=== PATIENT | female | born 1965 | race Two or more races ===

== ENCOUNTER 2024-12-08 11:01 | Emergency (ER) | payer MEDICAID, OTHER ==
[~2024-12-08] VITALS: Ht 167.6 cm; Wt 86.4 kg
--- NOTE | 2024-12-08 11:54 | DVH ---
EXAM: XY CHEST TWO VIEWS ROUTINE CLINICAL HISTORY: COUGH, SOB 12 DAYS COMPARISON: None TECHNIQUE: Frontal and lateral view of the chest was obtained FINDINGS: Lines and Tubes: None Lungs: No focal consolidation. Mild streaky scarring in the right mid lung. Pleura: No effusion. No pneumothorax. Cardiomediastinal contours: Unremarkable Pulmonary vasculature: Within normal limits. Bones: No acute osseous abnormality. IMPRESSION: 1. No acute cardiopulmonary disease. HS:Y
[2024-12-08 12:11] VITALS: BP 158/95; PULSE 117; TEMP 98.1
[2024-12-08] MEDS: PROMETHAZINE W/CODEINE 5 ML ORAL SYRUP PO ONE (13:21)
[2024-12-08 13:28] VITALS: RESP 18; O2SAT 95
[2024-12-08] MEDS: ALBUTEROL SULF 2.5 MG/0.5ML(0.5%) NEB SOLN NEB ONE (13:28)
[2024-12-08] MEDS: IPRATROPIUM BROM 0.5 MG/2.5ML INH SOL NEB ONE (13:28)
[2024-12-08] MEDS ORDERED: PROM1SOL4 PO (13:39)
[2024-12-08] MEDS ORDERED: ALBU108A5 IN (13:39)
[2024-12-08] MEDS ORDERED: BENZ100C97 PO (13:39)
--- NOTE | 2024-12-08 13:39 | ED.PDOC ---
SOB-HPI HPI Comments 59 year old currently taking cipro on day 4 presents for URI symptoms x 12 days C/o non productive cough. Also taking OTC cough medications Denies CP/SOB Chief Complaint: Flu like Time Seen by MD: 11:38 Primary Care Provider: NONE Reviewed notes: Nurses Notes, Medications, Allergies Information Source: Patient Mode of Arrival: Ambulatory Family History Family History: Reviewed,noncontributory to illness Social History Smoker: Non-Smoker Alcohol: Denies ETOH Use Drugs: Denies Drug Use All Other Systems: Reviewed and Negative (Per HPI) Physical Exam General Appearance: No Apparent Distress, Normal HEENT: Normal ENT Inspection, Pharynx Normal, TMs Normal Neck: Full Range of Motion, Non-Tender, Normal, Normal Inspection Respiratory: Chest Non-Tender, Lungs Clear, No Accessory Muscle Use, No Respiratory Distress, Normal Breath Sounds Cardiovascular: No Edema, No JVD, No Murmur, No Gallop, Normal Peripheral Pulses, Regular Rate/Rhythm Breast Exam: Deferred Gastrointestinal: No Organomegaly, Non Tender, No Pulsatile Mass, Normal Bowel Sounds, Soft Genitalia: Deferred Pelvic: Deferred Rectal: Deferred Extremities: No calf tenderness, Normal capillary refill, Normal inspection, Normal range of motion, Non-tender, No pedal edema Musculoskeletal : Apperance: Normal Neurologic: Alert, export packer II-XII nml as Tested, No Motor Deficits, Normal Affect, Normal Mood, No Sensory Deficits Cerebellar Function: Normal Reflexes: Normal Skin: Dry, Normal Color, Warm Lymphatic: No Adenopathy Was a procedure done? Was a procedure done?: No Differential Dx Differential Diagnosis: Bronchitis X-Ray, Labs, Meds, VS Vital Signs Date Time Temp Pulse Resp B/P (MAP) Pulse Ox O2 Delivery O2 Flow Rate FiO2 12/08/24 13:28 18 95 Room Air* 0 21 12/08/24 12:11 98.1 117 20 158/95 (116) 96 98.1 12/08/24 12:11 117 20 96 Room Air 12/08/24 11:20 98.1 111 20 158/95 (116) 96 PATIENT: GLORY RASHIDIAACCT: [id number]: [id number] : 1965 LOC: ER ROOM / BED: / AGE / SEX: 59 / F ADM STATUS: REG ER SERVICE 1125 ORDERING PHYSICIAN: SHARON IGLESIAS NP PROCEDURE(s): CXR2 - CHEST TWO VIEWS ROUTINE REASON: COUGH, SOB 12 DAYS ORDER NUMBER(s): [id number], ACCESSION NUMBER(s): [id number] EXAM: XY CHEST TWO VIEWS ROUTINE CLINICAL HISTORY: COUGH, SOB 12 DAYS COMPARISON: None TECHNIQUE: Frontal and lateral view of the chest was obtained FINDINGS: Lines and Tubes: None Lungs: No focal consolidation. Mild streaky scarring in the right mid lung. Pleura: No effusion. No pneumothorax. Cardiomediastinal contours: Unremarkable Pulmonary vasculature: Within normal limits. Bones: No acute osseous abnormality. IMPRESSION: 1. No acute cardiopulmonary disease. HS:Y ATED BY: FANTASMA SCHROEDER MD DICTATED DATE/TIME: 12/08/24 115 SIGNED BY: FANTASMA SCHROEDER MD SIGNED DATE/TIME: 12/08/24 115 CC: X-Ray, Labs, Meds, VS Comment History and physical consistent of URI History and exam also consistent with asthma exacerbation. Based on exam, indication for oral steroids and nebulizer at this time Chest XRAY Normal On reevaluation vital signs and exam reassuring. Lungs clear no wheezing. No labored breathing. No signs of respiratory distress. Pt stable for discharge. No concerns for pneumonia at this time. No risk factors. No indication for antibiotics Discussed that cough can linger up to 6 weeks after viral URI ED precautions if cough does not alleviate or if cough worsens Supportive care and return precautions discussed Counseled viral infection and explained that antibiotics would not be helpful in resolving the illness sooner. Recommended vitamin C, rest, handwashing, and symptomatic care. Expect 2-week course with possibly of cough lingering up to 6 weeks. Nonpharmacological remedies for fluids has been recommended as well Time of 1ST Reevaluation: 12:00 Reevaluation 1ST: Improved Time of 2ND Reevaluation: 13:38 Reevaluation 2ND: Improved Patient Education/Counseling: Diagnosis, Treatment Family Education/Counseling: Diagnosis, Treatment Departure 1 Departure Time of Disposition: 13:38 Impression: Primary Impression: Bronchitis Additional Impression: Wheezing Disposition: HOME / SELF CARE / HOMELESS Condition: Stable e-Prescriptions Albuterol Sulfate (Albuterol Sulfate Hfa) 108 Mcg/Act Aer 108 MCG IN Q6HP PRN for 30 Days, #1 AER 0 Refills Prov: SHARON IGLESIAS NP 12/08/24 Promethazine-Dm (Promethazine Dm 6.25-15 mg/5Ml) 1 Ruthie Ruthie 5 ML PO TID for 10 Days, #150 ML 0 Refills Prov: SHARON IGLESIAS NP 12/08/24 Benzonatate (Benzonatate) 100 Mg Cap 1 CAP PO TID for 10 Days, #30 CAP 0 Refills Prov: SHARON IGLESIAS NP 12/08/24 Critical Care Note Critical Care Time?: No Stability Stability form required: No Heart Score Heart Score: Heart Score Response (Comments) Value History N/A 0 EKG N/A 0 Age N/A 0 Risk Factors N/A 0 Troponin N/A 0 Total 0 SHARON IGLESIAS NP Dec 08, 2024 13:39
== END 2024-12-08 13:57 | disposition home or self-care (01) ==
LOC: ER 11:01
DX: J40 Bronchitis, not specified as acute or chronic (principal); R06.2 Wheezing
CPT/HCPCS: 71046; 94640